=== PATIENT | male | born 1975 | race Caucasian/White ===

== ENCOUNTER 2016-08-15 12:11 | Emergency (ER) | payer BC ==
[2016-08-15 12:41] VITALS: BP 150/91
--- NOTE | 2016-08-15 13:12 | UC ---
Lower Extremity/Ankle HPI - HPI Summary HPI Summary: for past month, intermittent pain deep in right buttock radiating down back/ side of right thigh to calf. No numbness, tingling, or giving out of leg. Hurst worse after he has been sitting for a while, when he gets up to walk again. Not particularly painful at night for first thing in AM, but if he exerts then sits , it will hurt when he gets up again. No fever. No specific injury. Works for town, does plowing. No heavy lifting - History of Current Complaint Chief Complaint: UCLowerExtremity Stated Complaint: RIGHT LEG PAIN Time Seen by Provider: 08/15/16 12:48 Hx Obtained From: Patient Onset/Duration: Gradual Onset, Lasting Weeks - 4 Severity Initially: Mild Severity Currently: Moderate Aggravating Factor(s): Ambulation Alleviating Factor(s): Rest Able to Bear Weight: Yes - Risk Factors Gout Risk Factors: Age Over 40, Male DVT Risk Factors: Negative Septic Arthritis Risk Factor: Negative - Allergies/Home Medications Allergies/Adverse Reactions: Allergies Allergy/AdvReac Type Severity Reaction Status Date / Time No Known Allergies Allergy Verified 08/15/16 12:41 Home Medications: Home Medications Pain Reliever Otc 2 tab PO ONCE PRN 08/15/16 [History] PMH/Surg Hx/FS Hx/Imm Hx Previously Healthy: Yes - Surgical History Surgical History: Yes Surgery Procedure, Year, and Place: TESTICULAR SX A CHILD. VASECTOMY - Family History Known Family History: Positive: Hypertension - Social History Occupation: Employed Full-time Lives: With Family Alcohol Use: Occasionally Substance Use Type: None Smoking Status (MU): Never Smoked Tobacco Type: Smokeless Tobacco Amount Used/How Often: 1 can / week Review of Systems Constitutional: Negative Skin: Negative Eyes: Negative ENT: Negative Respiratory: Negative Cardiovascular: Negative Gastrointestinal: Negative Genitourinary: Negative Motor: Negative Neurovascular: Negative Musculoskeletal: Negative, Decreased ROM, Myalgia Neurological: Negative Psychological: Negative All Other Systems Reviewed And Are Negative: Yes Physical Exam Triage Information Reviewed: Yes Appearance: Well-Appearing, No Pain Distress, Well-Nourished Vital Signs: Initial Vital Signs Temp 98.8 F 08/15/16 12:29 Pulse 90 08/15/16 12:29 Resp 18 08/15/16 12:29 BP 150/91 08/15/16 12:29 Pulse Ox 100 08/15/16 12:29 Vital Signs Reviewed: Yes Eye Exam: Normal Neck exam: Normal Respiratory Exam: Normal Cardiovascular Exam: Normal Musculoskeletal Exam: Other - mild tenderness on deep palpation right buttock over pyriformis. Mild discomfort on flexing at hip. Normal gait and station. Limps for a few steps after getting up from chair, then walks normally. Normal sensation Neurological Exam: Normal Psychological Exam: Normal Skin Exam: Normal Lower Extremity Course/Dx - Differential Dx/Diagnosis Differential Diagnosis/HQI/PQRI: DVT, Strain, Tendonitis Provider Diagnoses: sciatica Discharge - Discharge Plan Condition: Stable Disposition: HOME Prescriptions: predniSONE TAB* [Deltasone TAB*] 20 mg PO DAILY #20 tab Patient Education Materials: Sciatica (ED) Referrals: Demarco Arciniega [Physical Therapist] - No Primary Care Phys,NOPCP [Primary Care Provider] - Additional Instructions: After you finish the prednisone, you can resume the ibuprofen (Motrin) as needed. Consider a chiropractor, physical therapist, or massage if the pain is not improving
== END 2016-08-15 13:18 | disposition home or self-care (01) ==
LOC: UCCORT 12:11
DX: M54.30 Sciatica, unspecified side (principal)
CPT/HCPCS: 99212; G0463